=== PATIENT | female | born 1945 ===

== ENCOUNTER 2021-04-10 05:30 | Day surgery (SDC) | payer OTHER ==
[2021-04-10] MEDS ORDERED: SIMVASTAT PO (16:36)
== END 2021-04-10 12:45 | disposition home or self-care (01) ==
LOC: AMB-ENDOS 05:30
PROVIDERS: ATTEND Colon & Rectal Surgery
DX: D12.0 Benign neoplasm of cecum (principal); D12.2 Benign neoplasm of ascending colon; K64.8 Other hemorrhoids; Z20.822 Contact with and (suspected) exposure to COVID-19

== ENCOUNTER 2021-04-10 11:24 | Inpatient (IN) | payer OTHER ==
[~2021-04-10] VITALS: Ht 165.1 cm; Wt 61.2 kg
[2021-04-10] MEDS ORDERED: SIMVASTAT PO (16:36)
[2021-04-15] MEDS ORDERED: PRED FORTE5 ML (08:16)
[2021-04-15] MEDS ORDERED: SIMVASTATIN20 MG (08:16)
[2021-04-15] MEDS ORDERED: DORZOLAMIDE HCL10 ML (08:16)
[2021-04-15] MEDS ORDERED: LATANOPROST2.5 ML (08:16)
[2021-04-15] MEDS ORDERED: DORZOLAMIDE-TIM10 ML (08:17)
== END 2021-04-17 14:09 | disposition home or self-care (01) | DRG 331 ==
LOC: EDUNIT# 12:30 → O/R 04-15 06:35 → SURH 04-15 12:30
PROVIDERS: ADMIT Colon & Rectal Surgery; ATTEND Colon & Rectal Surgery
PROC: 0DQP4ZZ Repair Rectum, Percutaneous Endoscopic Approach (ICD-10-PCS; principal; 2021-04-15 14:30)
DX: K62.3 Rectal prolapse (principal); R15.9 Full incontinence of feces; K63.5 Polyp of colon

== ENCOUNTER 2021-09-16 09:48 | Day surgery (SDC) | payer OTHER ==
[~2021-09-16] VITALS: Ht 160 cm; Wt 77.6 kg
[~2021-09-16 09:48] MED LIST: DORZOLAMIDE HCL10 ML; DORZOLAMIDE-TIM10 ML; LATANOPROST2.5 ML; PRED FORTE5 ML; SIMVASTAT PO; SIMVASTATIN20 MG
== END 2021-09-16 14:00 | disposition home or self-care (01) ==
LOC: CIR.AMB 09:48
PROVIDERS: ATTEND Colon & Rectal Surgery
DX: R15.9 Full incontinence of feces (principal); Z20.822 Contact with and (suspected) exposure to COVID-19
CPT/HCPCS: 64581; 95972; C1778

== ENCOUNTER 2021-09-30 05:35 | Day surgery (SDC) | payer OTHER ==
[~2021-09-30 05:35] MED LIST changes: +SIMVASTATIN5 MG PO
== END 2021-09-30 11:00 | disposition home or self-care (01) ==
LOC: CIR.AMB 05:35
PROVIDERS: ATTEND Colon & Rectal Surgery
DX: R15.9 Full incontinence of feces (principal); E78.00 Pure hypercholesterolemia, unspecified; M19.90 Unspecified osteoarthritis, unspecified site; Z20.822 Contact with and (suspected) exposure to COVID-19
CPT/HCPCS: 64590; 95971; C1767